=== PATIENT | female | born 1935 | race Caucasian/White ===

== ENCOUNTER 2018-05-31 08:49 | Outpatient (CLI) | payer MEDICARE, BC ==
[2018-05-31 09:24] LABS: GLUCOSE, URINE (UA) NEGATIVE (NEGATIVE); KETONES,URINE (UA) NEGATIVE (NEGATIVE); LEUKOCYTE ESTERASE, URINE NEGATIVE (NEGATIVE); NITRITE,URINE NEGATIVE (NEGATIVE); OCCULT BLOOD,URINE NEGATIVE (NEGATIVE); PROTEIN,URINE NEGATIVE (NEGATIVE); UROBILINOGEN,URINE 2 E.U./dL (NORMAL)
[2018-05-31 09:25] LABS: CLARITY,URINE CLEAR (CLEAR)
[2018-05-31 09:28] LABS: BILIRUBIN,URINE NEGATIVE (NEGATIVE); ICTOTEST,URINE NEGATIVE
[2018-05-31 09:39] LABS: BILIRUBIN,DIRECT 0.3 mg/dL (0.1-0.5); BILIRUBIN,TOTAL 3.3 mg/dL (0.2-1.0); CREATININE 0.5 mg/dL (0.4-1.0)
[2018-05-31 16:03] LABS: CREATININE,URINE 103.3 mg/dL; PROTEIN/CREATININE RATIO,URINE 0.1 (<=0.2)
== END 2018-05-31 08:50 | disposition home or self-care (01) ==
LOC: LAB 08:49
PROVIDERS: ATTEND Internal Medicine Hematology & Oncology
DX: D46.9 Myelodysplastic syndrome, unspecified (principal)
CPT/HCPCS: 81003; 82247; 82248; 82565; 82570; 82728; 84075; 84156; 84450; 84460

== ENCOUNTER 2018-06-02 09:10 | Outpatient (CLI) | payer MEDICARE, BC ==
[2018-06-02 09:48] LABS: BILIRUBIN,DIRECT 0.4 mg/dL (0.1-0.5); BILIRUBIN,INDIRECT 1.6 mg/dL
== END 2018-06-02 09:11 | disposition home or self-care (01) ==
LOC: LAB 09:10
DX: D46.9 Myelodysplastic syndrome, unspecified (principal)
CPT/HCPCS: 36415; 82247; 82248

== ENCOUNTER 2018-10-04 09:53 | Outpatient (CLI) | payer MEDICARE, BC ==
[2018-10-04 10:44] LABS: BILIRUBIN,DIRECT 0.4 mg/dL (0.1-0.5)
== END 2018-10-04 09:54 | disposition home or self-care (01) ==
LOC: LAB 09:53
PROVIDERS: ATTEND Internal Medicine Hematology & Oncology
DX: D46.9 Myelodysplastic syndrome, unspecified (principal)
CPT/HCPCS: 36415; 82248; 82977

== ENCOUNTER 2018-10-25 17:41 | Outpatient (CLI) | payer MEDICARE, BC ==
[2018-10-25 18:39] LABS: ALBUMIN 4.1 g/dL (3.2-5.5); BILIRUBIN,DIRECT 0.4 mg/dL (0.1-0.5); BILIRUBIN,TOTAL 3.7 mg/dL (0.2-1.0); TOTAL PROTEIN 6.4 g/dL (6.7-8.2)
== END 2018-10-25 17:42 | disposition home or self-care (01) ==
LOC: LAB 17:41
PROVIDERS: ATTEND Internal Medicine Hematology & Oncology
DX: D46.9 Myelodysplastic syndrome, unspecified (principal)
CPT/HCPCS: 80076; 82977

== ENCOUNTER 2018-11-22 12:31 | Outpatient (CLI) | payer MEDICARE, BC ==
[2018-11-22 13:22] LABS: BILIRUBIN,DIRECT 0.3 mg/dL (0.1-0.5); BILIRUBIN,TOTAL 1.6 mg/dL (0.2-1.0); TOTAL PROTEIN 6.2 g/dL (6.7-8.2)
== END 2018-11-22 12:32 | disposition home or self-care (01) ==
LOC: LAB 12:31
PROVIDERS: ATTEND Internal Medicine Hematology & Oncology
DX: D46.9 Myelodysplastic syndrome, unspecified (principal)
CPT/HCPCS: 80076; 82977

== ENCOUNTER 2018-12-20 10:50 | Outpatient (CLI) | payer MEDICARE, BC ==
[2018-12-20 15:59] LABS: ALBUMIN 4.2 g/dL (3.2-5.5); BILIRUBIN,DIRECT 0.3 mg/dL (0.1-0.5); BILIRUBIN,TOTAL 2.1 mg/dL (0.2-1.0); TOTAL PROTEIN 6.1 g/dL (6.7-8.2)
== END 2018-12-20 10:51 | disposition home or self-care (01) ==
LOC: LAB 10:50
PROVIDERS: ATTEND Internal Medicine Hematology & Oncology
DX: D64.9 Anemia, unspecified (principal)
CPT/HCPCS: 36415; 80076; 82977

== ENCOUNTER 2019-01-31 10:08 | Outpatient (CLI) | payer MEDICARE, BC ==
[2019-01-31 10:53] LABS: ALBUMIN 4.3 g/dL (3.2-5.5); BILIRUBIN,DIRECT 0.3 mg/dL (0.1-0.5); BILIRUBIN,TOTAL 1.9 mg/dL (0.2-1.0)
== END 2019-01-31 10:09 | disposition home or self-care (01) ==
LOC: LAB 10:08
PROVIDERS: ATTEND Internal Medicine Hematology & Oncology
DX: D46.9 Myelodysplastic syndrome, unspecified (principal)
CPT/HCPCS: 36415; 80076; 82977

== ENCOUNTER 2019-08-29 10:49 | Day surgery (SDC) | payer MEDICARE, BC ==
[~2019-08-29 10:49] MED LIST: BUPIVACAINE 0.5% PF 30 ML VIAL ONE; LIDOCAINE 1%-EPI 1:100000 20 ML MDV ONE
[2019-08-29] MEDS ORDERED: LACTATED RINGERS 1,000 ML IV ONE (10:59)
--- NOTE | 2019-08-29 11:31 | ANESTHESIA ---
Pre-Anesthesia VS, & Labs - Diagnosis chronic anemia, myelodisplastic syndrome - Procedure portacath placement Vital Signs: Temp Pulse Resp BP Pulse Ox 36.6 C 69 16 119/57 L 97 08/29/19 10:59 08/29/19 10:59 08/29/19 10:59 08/29/19 10:59 08/29/19 10:59 Height 5 ft 6 in Weight (kg) 81.4 kg Body Mass Index 27.8 - Is Patient ?: No - Lab Results Fish Bones: 08/29/19 11:31 Home Medications and Allergies Home Medications: Ambulatory Orders Deferasirox [Jadenu] 720 mg PO DAILY 08/14/19 Deferasirox [Jadenu] 720 mg PO DAILY 08/14/19 Allergies/Adverse Reactions: Allergies Allergy/AdvReac Type Severity Reaction Status Date / Time No Known Drug Allergies Allergy Verified 07/25/19 10:47 Anes History & Medical History - Anesthetic History Anesthesia Complications: reports: No previous complications Family history of Anesthesia Complications: Denies Family history of Malignant Hyperthermia: Denies - Medical History Cardiovascular: reports: None Pulmonary: reports: None Gastrointestinal: reports: None Urinary: reports: None Neuro: reports: None Musculoskeletal: reports: None Endocrine/Autoimmune: reports: None Blood Disorders: reports: None Skin: reports: None Smoking Status: Never smoker Psychosocial: reports: No issues indicated - Surgical History General: Colonoscopy Gynecologic: Dilation and currettage, Tubal ligation, Hysterectomy Results - EKG Results EKG Comparison: No prior EKG Exam General: Alert, Oriented x3, Cooperative, No acute distress Dental: WNL Mouth Openin Fingerbreadth Neck Mobility: Normal Mallampati classification: II Thyromental Distance: less than 4 cm Respiratory: Lungs clear, Normal breath sounds, No respiratory distress, No accessory muscle use Cardiovascular: Regular rate, Normal S1, Normal S2, No murmurs Abdomen: Normal bowel sounds, Soft, No tenderness, No hepatospenomegaly, No masses Extremities: No clubbing, No cyanosis, No edema, Normal pulses, No tenderness/swelling Neurological: Normal gait, Normal speech, Strength at 5/5 X4 ext, Normal tone, Sensation intact, Cranial nerves 3-12 NL, Reflexes 2+ Mental/Cognitive Status: Alert/Oriented X3, Normal for patient Cognitive Status: Within normal limits Plan Anesthesia Type: General, MAC (spoke with patient about both general and deep sedation/MAC) Consent for Procedure(s) Verified and Reviewed: Yes Code Status: Attempt Resuscitation ASA classification: 3-Severe systemic disease Is this case an emergency?: No
[2019-08-29 11:40] LABS: HGB - HEMOGLOBIN 9.4 g/dL (12.0-16.0)
[2019-08-29] MEDS ORDERED: PROPOFOL 200 MG/20 ML VIAL IVP ONE (12:44)
[2019-08-29] MEDS ORDERED: MIDAZOLAM 2 MG/2 ML VIAL IVP ONE (12:44)
[2019-08-29] MEDS ORDERED: fentaNYL 100 MCG/2 ML VIAL IVP ONE (12:44)
[2019-08-29] MEDS ORDERED: LIDOCAINE-MPF 2% 5 ML VIAL IM ONE (12:44)
[2019-08-29] MEDS ORDERED: LIDOCAINE 1%-EPI 1:100000 20 ML MDV SUBQ ONE (13:19)
[2019-08-29] MEDS ORDERED: BUPIVACAINE 0.5% PF 30 ML VIAL SUBQ ONE (13:20)
--- NOTE | 2019-08-29 13:41 | OPERATIVE REPORT ---
Operative Report - General Procedure Date: 08/29/19 Planned Procedure: Left subclavian PowerPort placement Pre-Op Diagnosis: Myelodysplastic syndrome with chronic anemia Procedure Performed: Left Subclavian Power Port Placement Post Op Diagnosis: Myelodysplastic syndrome with chronic anemia - Procedure Note Primary Surgeon: Eh Anesthesia Provider: CLEMENTE Sapp Anesthesia Technique: Local, MAC Estimated Blood Loss (mL): 10 Indications: Anemia requiring blood transfusion twice monthly Findings: Power port in good position in the superior vena cava Complications: None apparent - Other Other Information/Narrative: After obtaining informed consent, the patient is brought to the operating room and placed in the supine position on the operating table. Following successful induction of sedation with monitored anesthesia care, the chest was prepped and draped in the standard surgical fashion. A timeout was held per scope protocol. All elements of the surgical safety checklist were followed before, during, and after the procedure. An area of the skin is of cutaneous tissue was anesthetized in the deltopectoral groove in the left chest the left subclavian vein was then accessed through the site and the J-wire placed into the vein. Fluoroscopy confirmed the J-wire's position in the subclavian vein. We then anesthetized an area for placement of the port itself and created a pocket here. An incision was made in this area and a pocket created using blunt and sharp dissection so that the port could be attached to the patient's chest wall. A ibis was then created at the J-wire location and the tubing was placed in this pocket using the tunneler. The port was then assembled and sewn into place in the pocket. The port was flushed once again. The dilator and introducer were then passed over the J-wire and into the subclavian vein. The J-wire and dilator were removed leaving only the introducer. The tubing was then gently passed into the introducer without resistance. The introducer was then cracked and removed leaving tubing in place in the subclavian vein. The wound was then checked for hemostasis. The port was checked for patency and flushed and krystle easily. It was locked with heparin saline solution. The pocket was closed in 2 layers with Vicryl Monocryl suture and Dermabond was applied all the skin incisions. All sponge, needle, and i nstrument counts were correct at the conclusion of the case. Chest x-ray in the postanesthesia care unit revealed the port in good position.
[2019-08-29] MEDS ORDERED: HYDROmorphone 0.5 MG/0.5 ML SYRINGE IVP PRN (13:42)
[2019-08-29] MEDS ORDERED: ONDANSETRON 4 MG/2 ML VIAL IVP PRN (13:42)
[2019-08-29] MEDS ORDERED: oxyCODONE 5 MG TABLET PO PRN (13:42)
--- NOTE | 2019-08-29 13:50 | XRAY Report ---
Reason: PORTACATH PLACEMENT Procedure Date: 08/29/2019 Accession Number: [id number] / [id number] Procedure: FL - OR Port-A-Cath CPT Code: Final Report FULL RESULT: EXAM: FLUOROSCOPIC GUIDANCE EXAM DATE: 08/29/2019 01:22 PM. CLINICAL HISTORY: PORTACATH PLACEMENT. COMPARISON: None. IMPRESSION: Fluoroscopic guidance provided for Port-A-Cath placement. Total fluoroscopy time: 0.1 minutes. Number of images: 1. RADIA
[2019-08-29 14:33] VITALS: BP 120/46
--- NOTE | 2019-08-29 14:40 | XRAY Report ---
Reason: POST PORTACATH PLACEMENT Procedure Date: 08/29/2019 Accession Number: [id number] / [id number] Procedure: XR - Chest for Line Placement CPT Code: Final Report FULL RESULT: EXAM: CHEST RADIOGRAPHY EXAM DATE: 08/29/2019 02:24 PM. CLINICAL HISTORY: Post Port-A-Cath placement. COMPARISON: CHEST 1 VIEW 09/28/2016 4:25 PM. TECHNIQUE: 1 view. FINDINGS: Tubes and lines: There has been interval placement of a left-sided Port-A-Cath via left subclavian approach. Tip of the catheter terminates in the proximal SVC. Lungs/Pleura: No focal opacities evident. No pleural effusion. No pneumothorax. Mediastinum: Within exam limitations, the cardiomediastinal contour is normal. Other: None. IMPRESSION: New left-sided Port-A-Cath tip in the proximal SVC. No apparent complication. RADIA
== END 2019-08-29 10:50 | disposition home or self-care (01) ==
LOC: SDS 10:49
PROVIDERS: ATTEND Surgery
PROC: 02HV33Z Insertion of Infusion Device into Superior Vena Cava, Percutaneous Approach (ICD-10-PCS; 2019-08-29)
PROC: 0JH60WZ Insertion of Totally Implantable Vascular Access Device into Chest Subcutaneous Tissue and Fascia, Open Approach (ICD-10-PCS; principal; 2019-08-29 12:30)
DX: D46.9 Myelodysplastic syndrome, unspecified (principal); Z79.899 Other long term (current) drug therapy
CPT/HCPCS: 36561; 85014; 85018; C1788; J7120; 71045

== ENCOUNTER 2019-09-19 09:47 | Outpatient (CLI) | payer MEDICARE, BC ==
[2019-09-19] MEDS ORDERED: IOTHALAMATE MEGLUMINE 50 ML VIAL ONE (09:52)
[2019-09-19] MEDS: IOTHALAMATE MEGLUMINE 50 ML VIAL IVP ONE (12:32)
--- NOTE | 2019-09-19 12:38 | XRAY Report ---
Reason: DYSFUNCTION OF PORT Procedure Date: 09/19/2019 Accession Number: [id number] / [id number] Procedure: FL - Fluoro Independent Procedure CPT Code: Final Report FULL RESULT: EXAM: EXAM DATE: 09/19/2019 11:04 AM. CLINICAL HISTORY: Portacatheter function. COMPARISON: Chest x-ray 08/29/2019. TECHNIQUE: Verbal and written consent obtained. The patient presented with access of the indwelling left portacatheter. Using standard aseptic technique. Approximately 5 cc of Conray injected via the indwelling line under fluoroscopic guidance. Fluoroscopy Time: 0.5 seconds. FINDINGS: The tip of the catheter is seen at the junction of the brachiocephalic subclavian vein, stable since the immediate post procedure placement examination. Contrast flows readily into the superior vena cava in normal antegrade fashion. There is pooling or reflux to suggest fibrin sheath formation IMPRESSION: 1. No fibrin sheath formation. 2. Portacatheter tip at the left brachiocephalic vein/superior vena cava junction. NOTE: Discussed results with Nurse White in the MAC at 11:25 am. NEVAEH
== END 2019-09-19 09:48 | disposition home or self-care (01) ==
LOC: DI 09:47
PROVIDERS: ATTEND Internal Medicine Hematology & Oncology
DX: T85.698A Other mechanical complication of other specified internal prosthetic devices, implants and grafts, initial encounter (principal)
CPT/HCPCS: 76000; Q9961

== ENCOUNTER 2020-09-03 12:20 | Outpatient (CLI) | payer MEDICARE, BC ==
--- NOTE | 2020-09-03 16:33 | CONSULTATION NOTE ---
Palliative Care Consultation - Referral Referring Provider: Dr. Rose Rojas Time of Visit: [id number] Referral setting: [facility] [place] Referral Reason: MDS/Goals of Care/Pal Care - Information Sources Records reviewed: Previous records reviewed History/Review of Systems obtained from: Patient Exam limitations: No limitations - History of Present Illness Brief History of Present Illness: This is a ute 85-year-old woman who has MDS, her original diagnosis was in 2014, has had severe anemia, been transfusion dependent every 2 to 3 weeks. Has previously failed Procrit. She also has ongoing leukopenia and neutropenia, previously treated with Neupogen. She is known to have iron overload due to frequent transfusions, but had to stop jejuni related to severe diarrhea. She is currently on luspatercept since 12/26/2019, originally had a fairly good response, but now more concerns regarding a sustained response. We are waiting the results of her labs, she does appear quite pale, fatigued, and suspect she is going to need a transfusion. She does understand her options are declining, but her next line of treatment would be Vidaza. She is very much interested in advanced care planning, focusing on quality of life, does present with low symptom burden other than constipation, she does recognize the seriousness of he r illness and would like to get things organized and in place. She has very few other comorbidities, other than macular degeneration, continues to be quite engaged in her [employer] community, and has had significant support through her family. She does have 3 children, her son Kody, [place] and providing ongoing support. She does live independently, they had lived with her for a couple of months, now though is having less energy, so has enjoyed having her son and [id number] provide another layer of support. 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 She has 3 children, one in [place], a daughter who is chronically ill in [place], and her son and [id number] who [place]. She has an expansive community of support, though this can also be tiring for her, she is working on setting limits. Family History - Family History Family History: Mother: , Father: Medications/Allergies - Medications Home Medications: Ambulatory Orders Medication Instructions Recorded Confirmed Lidocaine/Prilocain 2.5% Cream 1 gm TOP PRN PRN #1 tube 08/29/19 09/03/20 [Emla 2.5% Cream] Cholecalciferol (Vitamin D3) 1 tab PO DAILY 09/03/20 09/03/20 [Vitamin D3] Lactobacillus Acidophilus 1 tab PO DAILY 09/03/20 09/03/20 [Probiotic Acidophilus] Senna [Senokot] 8.6 mg PO QPM PRN MDD 2-4 tabs 09/03/20 09/03/20 polyethylene glycoL 3350 [Miralax] 8.5 - 17 gm PO DAILY 09/03/20 09/03/20 - Allergies Allergies/Adverse Reactions: Allergies Allergy/AdvReac Type Severity Reaction Status Date / Time No Known Drug Allergies Allergy Verified 09/03/20 13:02 Review of Systems - Constitutional Constitutional: reports: Fatigue (worsening), Weight stable. denies: Fever, Chills - Eyes Eyes: reports: Vision loss - Ears, Nose & Throat Ears, Nose & Throat: reports: Mouth lesions - Cardiovascular Cardiovascular: reports: Exertional dyspnea, Decr. exercise tolerance. denies: Edema - Respiratory Respiratory: reports: SOB with exertion. denies: SOB at rest - Gastrointestinal Gastrointestinal: reports: Constipation (intermittent hard stool), Good appetite, Other (occasional difficulty swallowing). denies: Nausea - Genitourinary Genitourinary: reports: Urgency. denies: Incontinence - Musculoskeletal Musculoskeletal: reports: Muscle weakness - Neurological Neurological: reports: General weakness, Memory problems (notes mild at times) - Psychiatric Psychiatric: denies: Depression, Anxiety - Hematologic/Lymphatic Hematologic/Lymph: Anemia - All Other Systems All Other Systems: reports: Reviewed and negative Physical Exam - Vital Signs Temperature: 36.8 C Pulse Rate: 76 Respiratory Rate: 16 Blood Pressure: 110/45 - Physical Exam General Appearance: positive: No acute distress, Alert, Other (feeling poorly) Eyes Bilateral: positive: Normal inspection ENT: positive: No signs of dehydration Neck: positive: Trachea midline Respiratory: negative: No respiratory distress (breathlessness with ambulation) Abdomen: positive: Non-tender, Soft Skin: positive: Pallor Extremities: positive: No pedal edema Neurologic/Psychiatric: positive: Oriented x3, Mood/affect nml, Weakness Palliative Care - POLST Patient has POLST: Yes POLST Status: DNR, Selective Treatment (completed at time of visit) Pain: No pain Tiredness/Fatigue: Severe (7-10) Drowsiness/Sedation: Mild (1-3) Nausea: None Anorexia: None Dyspnea: Moderate (4-6) Depression: None Anxiety: Mild (1-3) Feelings of wellbeing/Perceived Quality of Life: Fair, Acceptable, Worsening Sleep: Sleeps well Constipation: Yes, Intermittent constipation Performance Status: Patient does have worsening activity tolerance, does suspect her counts are down. Her energy waxes and wanes, but has been declining over time. She is independent in her ADLs, she is no longer able to drive secondary to her macular degeneration. She is found this quite a loss of freedom. - Palliative Care Discussion: Patient is quite anxious to get her affairs in order, we did discuss in the context of advanced care planning documents she does have a DPOA, that she might want to revisit, she does prefer at this point in time to have her son Kody as he is living close now to be her primary. She does have it set up is either her friend Dee Lorenzo or her son. She does have plans set up with [facility], they do have some end-of-life planning packets, she is quite curious what she needs to finish yet. She very much though is clear she wants to be a DNA R, will go ahead and complete the POLST. In discussion we have filled up his DNA R/allow natural , and selective treatment. She would still accept treatment at this time for reversible conditions, and would weigh benefits and burdens of any other kind of interventions. And summing up her goals, she would like to focus on quality of life, living life to the fullest which for her means being independent and able to do the things that give her meaning, spending time with family, and at end-of-life a comfortable respectful she is not sure at this point in time if she would want to have a at home. She would very much like to have some conversations with her son who will be her DPOA to further explore some of these avenues. Given the Covid restrictions, we will set up a home visit for family meeting next time. Results - Lab Results Lab results reviewed: Yes Lab and Imaging Results: HGB 6.7; did receive transfusion after visit Impression and Recommendations - Palliative Care Impression: This is a ute 85-year-old woman who has myelodysplastic syndrome with severe anemia, leukocytopenia and thrombocytopenia. She has been transfusion dependent, she will be receiving 2 units today for hemoglobin of 6.7. She has been on a new medication lusperacept since December, but is aware may need to transition to next treatment plan. She does understand the seriousness of her illness and there are more limited options moving forward, she would like to complete her advance care planning, and explore further ways to support and organize for her end of life. Palliative care meeting with patient for first time, to explore goals of care, symptom burden, and anticipatory guidance. Recommendations/Counseling Done: 1. Constipation. Counseling provided regarding management of constipation, instructed to start MiraLAX 1/2-1 cap daily, and use senna for 1-2 tabs daily for a goal of daily soft regular bowel movement. 2. Fatigue. This is multifactorial in origin, suspect at time of visit she was fairly anemic, patient will be receiving 2 units of packed red blood cells toda y for hemoglobin of 6.7. She has so had been experiencing worsening activity tolerance and some mild functional decline. 3. Advanced care planning. Counseling provided regarding introducing the role of palliative care, setting up rapport, patient would wanted to complete the POLST, counseling provided regarding role of this and completed with initial goals of care. We will continue to explore further themes regarding this. Patient would very much like her son involved, will set up family meeting for next visit. Time Spent: 55 minutes with greater than 50% of this done in counseling, completion of POLST, setting of rapport, and anticipatory guidance.
== END 2020-09-03 12:21 | disposition home or self-care (01) ==
LOC: PC 12:20
PROVIDERS: ATTEND Nurse Practitioner Adult Health
DX: Z51.5 Encounter for palliative care (principal); K59.00 Constipation, unspecified; R53.83 Other fatigue; D46.9 Myelodysplastic syndrome, unspecified; D72.819 Decreased white blood cell count, unspecified; D69.6 Thrombocytopenia, unspecified; Z79.899 Other long term (current) drug therapy; Z66 Do not resuscitate
CPT/HCPCS: 99204

== ENCOUNTER 2020-09-19 10:30 | Outpatient (CLI) | payer MEDICARE, BC ==
--- NOTE | 2020-09-19 17:28 | CONSULTATION NOTE ---
Palliative Care Follow Up - Referral Referring Provider: Dr. Rose Rojas Time of Visit: [id number] Referral setting: Home Referral Reason: MDS/Constipation/ACP - Information Sources Records reviewed: Previous records reviewed History/Review of Systems obtained from: Patient, Family (son Kody present) Exam limitations: No limitations - History of Present Illness Update Brief HPI Update: This is a ute 85-year-old woman who has MDS, with her original diagnosis in 2014, has had severe anemia, and has been transfusion dependent. She had been on Luspatercept, until she was no longer receiving a sustained response. This was just stopped with the goal to start Vidaza. Patient does understand this is most likely her last treatment option, though she did reach out to Dr. Calderon, her oncologist at [facility] and there may be an oral medication in clinical trial she would be candidate for. She did receive 2 units of packed red blood cells on 09/13, is pleased as her hematocrit has held at 9.0, and is feeling better. Unfortunately she does present with neutropenia neutrophils at 0.2, and WBCs at 2.4. 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 Today's meeting was set up with her son Kody, to discuss end-of-life options. She is hoping for the best, but does understand this likely a 30 to 40% chance of response, and she is coming towards the end of her options for treatment. She has very few other comorbidities, other than macular degeneration. She is starting to have some functional decline, though this is most related to her fluctuating anemia. Did have some persistent obstipation, does describe though out over the last few months as her stools are dark and somewhat she denies any GERD, abdominal discomfort, or butch bleeding. 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 She has 3 children in [place], daughter is chronically ill in [place], and her son Kody a [id number] who recently moved to the [place]. An expansive community of support and though this could be tiring for her she is working on setting limits. Medications/Allergies - Medications Home Medications: Ambulatory Orders Medication Instructions Recorded Confirmed Lidocaine/Prilocain 2.5% Cream 1 gm TOP PRN PRN #1 tube 08/29/19 09/17/20 [Emla 2.5% Cream] Cholecalciferol (Vitamin D3) 1 tab PO DAILY 09/03/20 09/17/20 [Vitamin D3] Lactobacillus Acidophilus 1 tab PO DAILY 09/03/20 09/17/20 [Probiotic Acidophilus] Senna [Senokot] 8.6 mg PO QPM PRN MDD 2-4 tabs 09/03/20 09/17/20 polyethylene glycoL 3350 [Miralax] 8.5 - 17 gm PO DAILY 09/03/20 09/17/20 - Allergies Allergies/Adverse Reactions: Allergies Allergy/AdvReac Type Severity Reaction Status Date / Time No Known Drug Allergies Allergy Verified 09/17/20 12:42 Review of Systems - Constitutional Constitutional: reports: Fatigue (better with recent transfusion), Weight stable (165). denies: Fever, Chills - Eyes Eyes: reports: Vision loss - Cardiovascular Cardiovascular: reports: Decr. exercise tolerance. denies: Chest pain - Respiratory Respiratory: reports: SOB with exertion. denies: Cough, SOB at rest - Gastrointestinal Gastrointestinal: reports: Constipation (intermittent hard stool), Good appetite, Other (occasional difficulty swallowing). denies: Nausea - Genitourinary Genitourinary: reports: Urgency. denies: Incontinence - Musculoskeletal Musculoskeletal: reports: Stiffness, Muscle weakness - Integumentary Integumentary: reports: Dryness - Neurological Neurological: reports: General weakness, Memory problems (notes mild at times) - Psychiatric Psychiatric: reports: Anxiety (related to change in treatment; will need to get Vidaza in [place]) - Hematologic/Lymphatic Hematologic/Lymph: Anemia - All Other Systems All Other Systems: reports: Reviewed and negative Physical Exam - Vital Signs Pulse Rate: 72 Respiratory Rate: 18 Blood Pressure: 122/60 - Physical Exam General Appearance: positive: No acute distress, Alert Eyes Bilateral: positive: Normal inspection ENT: positive: No signs of dehydration Neck: positive: Trachea midline Cardiovascular: positive: Regular rate & rhythm Respiratory: positive: No respiratory distress, Breath sounds nml Abdomen: positive: Non-tender, Soft Skin: positive: Pallor, Dryness Extremities: positive: No pedal edema Neurologic/Psychiatric: positive: Oriented x3, Mood/affect nml, Weakness Palliative Care - POLST Patient has POLST: Yes POLST Status: DNR, Selective Treatment Pain: No pain Tiredness/Fatigue: Moderate (4-6) Drowsiness/Sedation: Mild (1-3) Nausea: None Anorexia: None Dyspnea: Mild (1-3) Depression: Mild (1-3) Anxiety: Moderate (4-6) Feelings of wellbeing/Perceived Quality of Life: Fair, Acceptable, Worsening Sleep: Sleeps well Constipation: Yes, Intermittent constipation Performance Status: Patient is able to manage her own ADLs, she is ambulatory though she is quite careful both with vision and with lower extremity weakness. Does pace herself and takes she is fearful of falling. - Palliative Care Discussion: Patient does understand the seriousness of her illness, she reports she is at a place where "she is just holding her breath", she is quite pleased with her current status she is feeling better from her transfusion. She is somewhat anxious in the context of receiving her Vidaza, her understanding is an expected 30 to 40% response rate. We are here to discuss the long-term planning and continuum regarding this. Counseling was provided regarding the continuum of care, looking at the fragility of living with MDS, high risk of infection, support long-term for transfusions, patient is quite clear she is most worried about quality of life. She is very independent, we did discuss at point we are at end-of-life, plans for end of life. Conversation was an opportunity for her and her son to discuss his willingness to be caregiving, we did discuss the role of hospice, son has recently lost her his father to dementia care facility and of Covid. He is familiar with the need to really define what goals are. He patient did complete POLST with last visit of DN AR and selective treatment. Currently she would be treated for reversible conditions as long as her quality of life for to be acceptable. Patient also would like to explore with dignity, she does understand its a time involved process, I will reach out to Dr. Reed DUNNE, I suspect if she were not to receive treatment she would receive or respond she would be in that 6-month window. This would allow her to move forward on this. Did steer them towards end-of-life Su. Also reviewed plans, DPOA for finance, feels like she has most of things in order. With patient and son, explored the anxiety regarding living in this "twilight time." Impression and Recommendations - Palliative Care Impression: This is a ute 85-year-old woman who has myelodysplastic syndrome, with severe anemia, leukocytopenia and thrombocytopenia. She continues to be transfusion dependent, she will be transitioning over to Vidaza. She does understand the seriousness of her illness, with more limited options. Today's meeting was to focus on advance care planning with her son support, as it is important for her to organize for her end-of-life. Palliative care will continue to provide support for symptom management and anticipatory guidance. Recommendations/Counseling Done: 1. Constipation. Patient has been using MiraLAX with softer stools, continues to titrate both MiraLAX and senna, with a goal for regular soft BM every 1-2 days. Patient did reveal today her stools have been on the dark side, sometimes tarry. We will go ahead and arrange for Hemoccult testing, and follow-up. 2. Fatigue. This is multifactorial in origin, she is feeling somewhat better with most recent transfusion. She has had worsening activity tolerance and mild functional decline. She does live alone and is high risk for falls. Did recommend [facility] for support. 3. Advanced care planning. Counseling with family, patient and son regarding the role of palliative care, advanced care planning documents, patient does have DPOA set up, as well as POLST completed. Patient is interested in doing DWD, will reach out to oncology regarding prognosis. Recommended that they explore and get volunteer for end-of-life Su, as well as make an appointment with her primary care for first request. We will continue to explore further themes as patient is very much wanting to get her affairs in order. 4. MDS. Patient will be receiving Vidaza, via [facility] related to shortage. She does understand the seriousness of her illness, will continue to support with symptom management and anticipatory guidance. Time Spent: 75 minutes with greater than 50% of this time in counseling regarding advanced care planning, continuum of care, end-of-life planning, and anticipatory guidance
== END 2020-09-19 10:31 | disposition home or self-care (01) ==
LOC: PC 10:30
PROVIDERS: ATTEND Nurse Practitioner Adult Health
DX: Z51.5 Encounter for palliative care (principal); K59.00 Constipation, unspecified; R19.5 Other fecal abnormalities; R53.83 Other fatigue; D46.9 Myelodysplastic syndrome, unspecified; D46.4 Refractory anemia, unspecified; D70.9 Neutropenia, unspecified; D69.6 Thrombocytopenia, unspecified; Z66 Do not resuscitate
CPT/HCPCS: 99350

== ENCOUNTER 2020-10-04 12:45 | Outpatient (CLI) | payer MEDICARE, BC ==
--- NOTE | 2020-10-04 17:35 | CONSULTATION NOTE ---
Palliative Care Follow Up - Referral Referring Provider: Islea Acharya PA-C Time of Visit: [id number] Referral setting: [facility] [place] Referral Reason: Constipation/MDS/Goals of Care - Information Sources Records reviewed: Previous records reviewed History/Review of Systems obtained from: Patient Exam limitations: Clinical condition (patient quite exhausted) - History of Present Illness Update Brief HPI Update: This is a ute 85-year-old woman who has MDS, with original diagnosis in 2014. She does have ongoing severe anemia and is transfusion dependent, she is currently receiving 2 units of packed red blood cells, her last transfusion was 9 days ago. She was feeling quite exhausted, and unfortunately due to her curre nt arrangements for her Vidaza, was having difficulty accessing what she needs for labs. She was able to advocate for this, but is hoping moving forward can be better organized. She did receive 5 days of Vidaza, has 2 next week, her understanding is this is monthly. She does have some increased fatigue though attributes this to her low hemoglobin, she has some mild soreness in her abdomen, has had some intermittent nausea, and has found the trip somewhat exhausting. Patient had asked to meet, to further discuss her questions around goals of care and DWD. Social History - Living Situation Living arrangement: At home Living Situation: Alone Support System: Patient does have an extensive support network, [place] and in conjunction with her friends have been finding transportation. 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 Medications/Allergies - Medications Home Medications: Ambulatory Orders Medication Instructions Recorded Confirmed Lidocaine/Prilocain 2.5% Cream 1 gm TOP PRN PRN #1 tube 08/29/19 09/17/20 [Emla 2.5% Cream] Cholecalciferol (Vitamin D3) 1 tab PO DAILY 09/03/20 09/17/20 [Vitamin D3] Lactobacillus Acidophilus 1 tab PO DAILY 09/03/20 09/17/20 [Probiotic Acidophilus] Senna [Senokot] 8.6 mg PO QPM PRN MDD 2-4 tabs 09/03/20 09/17/20 polyethylene glycoL 3350 [Miralax] 8.5 - 17 gm PO DAILY 09/03/20 09/17/20 - Allergies Allergies/Adverse Reactions: Allergies Allergy/AdvReac Type Severity Reaction Status Date / Time No Known Drug Allergies Allergy Verified 09/17/20 12:42 Review of Systems - Constitutional Constitutional: reports: Fatigue (better with recent transfusion), Weight stable (165). denies: Fever, Chills - Eyes Eyes: reports: Vision loss - Ears, Nose & Throat Ears, Nose & Throat: reports: Dry mouth - Cardiovascular Cardiovascular: reports: Decr. exercise tolerance - Respiratory Respiratory: reports: SOB with exertion. denies: Cough, SOB at rest - Gastrointestinal Gastrointestinal: reports: Constipation (intermittent hard stool), Nausea, Vomiting (one episode this week), Bloating, Early satiety - Genitourinary Genitourinary: reports: Urgency. denies: Incontinence - Musculoskeletal Musculoskeletal: reports: Stiffness, Muscle weakness - Integumentary Integumentary: reports: Dryness - Neurological Neurological: reports: General weakness, Memory problems (notes mild at times) - Psychiatric Psychiatric: reports: Anxiety (related to change in treatment; trying to roman igate current landscape with getting Vidaza in [place]) - Hematologic/Lymphatic Hematologic/Lymph: Anemia (receiving 2 units PRBCs for 7.5 hgb) - All Other Systems All Other Systems: reports: Reviewed and negative Physical Exam - Vital Signs Temperature: 97.5 C Pulse Rate: 73 Respiratory Rate: 18 Blood Pressure: 118/47 - Physical Exam General Appearance: positive: No acute distress, Alert, Lethargic Eyes Bilateral: positive: Normal inspection, No scleral icterus ENT: positive: No signs of dehydration Neck: positive: Trachea midline Respiratory: positive: No respiratory distress Abdomen: positive: Non-tender, Soft Skin: positive: Pallor (slightly yellow hue), Dryness Extremities: positive: No pedal edema Neurologic/Psychiatric: positive: Oriented x3, Mood/affect nml, Weakness, Flat affect Palliative Care - POLST Patient has POLST: Yes POLST Status: DNR, Selective Treatment Pain: No pain Tiredness/Fatigue: Severe (7-10) Drowsiness/Sedation: Moderate (4-6) Nausea: Mild (1-3) Anorexia: Mild (1-3) Dyspnea: Mild (1-3) Depression: Mild (1-3) Anxiety: Moderate (4-6) Feelings of wellbeing/Perceived Quality of Life: Fair, Worsening Sleep: Sleeps well Constipation: Yes, Intermittent constipation Performance Status: Patient is feeling low energy, is spending most of her time sitting in her chair, this is related both to her increased effort with travel as well as her low hematocrit. She does live alone, and concerned about her meeting her care needs, her son did offer for her to stay at his place, encouraged her to continue to consider this during times when she is feeling so low. - Palliative Care Discussion: Patient did have a conversation with her PCP, he is not very open to doing DWD prescribing, is happy to be a collaborating physician. We did discuss given the complexity with blood cancers, often we do not have the time or lecture he as it is at least a 3 to 4-week process. I did provided the checklist. She does understand and is not interested in having this absolute happen, but would like to have it as an option. At this point in time she will reach out when she would like me to put her in touch with a volunteer, we did discuss her goals for end-of-life. She would like a peaceful transition and hoping for no crisis, though does recognize things may go poorly, we also discussed she is transfusion dependent at any point in time when quality of life does not make any sense she could stop her transfusions and transition to hospice as well for support. She does understand the likelihood of response on her current treatment, she is hoping for the best. She also does understand she has to wait for a few cycles before knowing the outcome to her treatment. She remains hopeful, but also realistic. 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 She last received a transfusion 9 days ago, is currently receiving 2 units of packed red blood cells. She does understand the seriousness of her illness, and is currently started on her Vidaza. Unfortunately due to the complexity of this, is re ceiving Vidaza over an average. This is felt somewhat difficult to straddle both systems, had multiple questions about how to make this more smooth. Palliative care continue provide support for symptom management and anticipatory guidance. Recommendations/Counseling Done: 1. Constipation. Patient continues to struggle with intermittent constipation, has not been using her MiraLAX, has been using the senna. Given what she describes, she has been encouraged to me discussed ways to incorporate MiraLAX into her schedule daily. She does report she does have some trouble with medication adherence. 2. Nausea. She has found ondansetron to be effective, has had a couple episodes through this week with her initiation of Vidaza. She also reports early satiety, she is remaining hydrated. 3. Fatigue this is multifactorial in origin. She does get a little boost still from her transfusions of 2 or 3 days, but now with travel and initiation of her new treatment, this remains fairly persistent. Patient does live alone and is at high risk for falls, have recommended [facility] for support, her son is also offered for her to be at his home. Encouraged considering this. 4. MDS. Patient have is received 5 out of 7 days of Vidaza, her understanding is this will be monthly. Did reach out to Dr. Reed DUNNE, for coordination of care, she would like to see Dr. Booker, and also make sure with over the holiday, the she is able to get a transfusion without problems. She does recognize the seriousness and concern for shortening time. 5. Advanced care planning. Patient continues to move forward on her plans, counseling provided today regarding DWD, also other planning issues around end-of-life, patient is quite pragmatic, did explore patient's questions today. Time Spent: 45 minutes with greater than 50% of this done in counseling regarding advanced care planning, symptom management, and anticipatory guidance
== END 2020-10-04 12:46 | disposition home or self-care (01) ==
LOC: PC 12:45
PROVIDERS: ATTEND Nurse Practitioner Adult Health
DX: Z51.5 Encounter for palliative care (principal); K59.00 Constipation, unspecified; R11.0 Nausea; R53.83 Other fatigue; D46.9 Myelodysplastic syndrome, unspecified; D46.4 Refractory anemia, unspecified; Z66 Do not resuscitate
CPT/HCPCS: 99215

== ENCOUNTER 2020-10-06 22:10 | Outpatient (CLI) | payer MEDICARE, BC | END 2020-10-06 22:11 | disposition critical access hospital (66) | LOC: EMS 22:10 | PROVIDERS: ATTEND Surgery | DX: R10.84 Generalized abdominal pain (principal); R14.0 Abdominal distension (gaseous); K59.00 Constipation, unspecified | CPT/HCPCS: A0425; A0429 ==

== ENCOUNTER 2020-10-06 22:42 | Emergency (ER) | payer MEDICARE, BC ==
[2020-10-06] MEDS ORDERED: LACTATED RINGERS 1,000 ML IV ONE (23:17)
--- NOTE | 2020-10-06 23:23 | ED Physician Documentation ---
History of Present Illness - Stated complaint Stated Complaint: ABD PX - Chief complaint Chief Complaint: Abd Pain - History obtained from History obtained from: Patient - Additonal information Additional information: 85-year-old woman with past medical history of myelodysplastic syndrome on her third line treatment for this (AZACITIDINE that she started a week ago). Patient states she has had constipation since starting this medication and was put on senna/MiraLAX for this. She had one hard small stool this morning but has had abd pain since this am- gradual onset worsening constant cramping midline abdominal pain to the upper and lower quadrants a/w bloating. no exac/relieving symptoms. She denies urinary symptoms, fever, nausea, diarrhea, blood in the stool, back pain. PSH MAME. denies other abdominal surgeries. patient is passing flatus with difficulty. patient was given 150ucg fentanyl by ems en route. she declined nausea medicine. Review of Systems Ten Systems: 10 systems reviewed and negative Constitutional: denies: Fever, Chills, Myalgias GI: reports: Abdominal Pain, Abdominal Swelling, Constipation. denies: Nausea, Vomiting, Diarrhea : denies: Dysuria, Frequency Skin: denies: Rash Musculoskeletal: denies: Back pain PD PAST MEDICAL HISTORY - Past Medical History Cardiovascular: None Neuro: None Endocrine/Autoimmune: None GI: Chronic constipation HEENT: Chronic vision loss, Macular degeneration Psych: None Musculoskeletal: Fatigue, Other Other Past Medical History: myelodysplastic syndrome - Past Surgical History Past Surgical History: Yes /[employer]: Hysterectomy - Present Medications Home Medications: Ambulatory Orders Medication Instructions Recorded Confirmed Lidocaine/Prilocain 2.5% Cream 1 gm TOP PRN PRN #1 tube 08/29/19 10/06/20 [Emla 2.5% Cream] Cholecalciferol (Vitamin D3) 1 tab PO DAILY 09/03/20 10/06/20 [Vitamin D3] Lactobacillus Acidophilus 1 tab PO DAILY 09/03/20 10/06/20 [Probiotic Acidophilus] Senna [Senokot] 8.6 mg PO QPM PRN MDD 2-4 tabs 09/03/20 10/06/20 polyethylene glycoL 3350 [Miralax] 8.5 - 17 gm PO DAILY 09/03/20 10/06/20 - Allergies Allergies/Adverse Reactions: Allergies Allergy/AdvReac Type Severity Reaction Status Date / Time No Known Drug Allergies Allergy Verified 10/06/20 22:58 - Social History Does the pt smoke?: No Smoking Status: Never smoker Does the pt drink ETOH?: Yes Does the pt have substance abuse?: No - Immunizations Immunizations are current?: Yes - POLST Patient has POLST: Yes PD ED PE NORMAL - Vitals Vital signs reviewed: Yes - General General: Alert and oriented X 3 - HEENT HEENT: Atraumatic, PERRL, EOMI - Cardiac Cardiac: RRR, Other (port in place) - Respiratory Respiratory: No respiratory distress, Clear bilaterally - Abdomen Abdomen: Non tender, Non distended, Other (discomfort to palpation diffusely) - Female Female : Deferred - Rectal Rectal: Other (ROBBIN sosa. brown stool on exam. nontender. no ext hemorrhoids) - Back Back: No CVA TTP - Derm Derm: Normal color - Extremities Extremities: No deformity, No edema - Neuro Neuro: Alert and oriented X 3 - Psych Psych: Normal mood, Normal affect Results - Vitals Vitals: Vital Signs - 24 hr 10/06/20 10/07/20 10/07/20 22:55 01:00 01:17 Temperature 36.7 C Heart Rate 79 80 Respiratory 16 14 Rate Blood Pressure 124/83 H 128/51 L O2 Saturation 97 98 Oxygen O2 Source Room air - Labs Labs: Laboratory Tests 10/06/20 10/06/20 10/06/20 23:20 23:20 23:35 WBC 1.4 L* RBC 2.91 L Hgb 8.8 L Hct 27.9 L MCV 95.9 MCH 30.2 MCHC 31.5 L RDW 15.9 H Plt Count 66 L MPV 13.1 H Neut # (Auto) 0.7 L Lymph # (Auto) 0.6 L [place] # (Auto) 0.2 Eos # (Auto) 0.0 Baso # (Auto) 0.0 Absolute Nucleated RBC 0.00 Nucleated RBC % 0.0 Manual Slide Review Indicated Platelet Estimate DECREASED (<130,000) Platelet Morphology NORMAL APPEARANCE RBC Morph Micro Appear NORMAL APPEARANCE Sodium 136 Potassium 4.1 Chloride 100 L Carbon Dioxide 29 Anion Gap 7.0 BUN 17 Creatinine 0.5 Estimated GFR (MDRD) 117 Glucose 137 H Lactic Acid 1.5 Calcium 9.4 Total Bilirubin 1.3 H AST 36 ALT 26 Alkaline Phosphatase 89 Total Protein 6.3 L Albumin 4.2 Globulin 2.1 Albumin/Globulin Ratio 2.0 Lipase 21 L PD MEDICAL DECISION MAKING - ED course Complexity details: reviewed results, d/w patient ED course: 85-year-old woman with myelodysplastic syndrome suffering from constipation x1 week presents with abdominal pain today. Will obtain CT to evaluate for abdominal pathology, reevaluate. 2:30am - d/w patient re: nonspecific cecal distension. no sign of sbo. rectal exam brown stool. patient educated extensively about red flags for return. she will f/u tomorrow for her MDS treatment and will call her doctor to discuss symptoms at that time. Departure - Departure Disposition: 01 Home, Self Care Clinical Impression: Constipation, Abdominal pain, Myelodysplastic syndrome, Pancytopenia Condition: Stable Instructions: ED Constipation Comments: You were seen in the emergency department for abdominal pain. Your lab work was stable. Your CAT scan showed no signs of obstruction. You are likely having this pain and bloating from constipation. Return to the ED for any new or worsening symptoms. Follow-up with your oncologist tomorrow.
[2020-10-06 23:26] LABS: EOSINOPHILS % (AUTO) 0.7 %; HGB - HEMOGLOBIN 8.8 g/dL (12.0-16.0); LYMPHOCYTES # (AUTO) 0.6 10^3/uL (1.5-3.5); LYMPHOCYTES % (AUTO) 39.7 %; MEAN CORPUSCULAR HEMOGLOBIN 30.2 pg (27.0-31.0); MEAN CORPUSCULAR HGB CONC 31.5 g/dL (32.0-36.0); MEAN CORPUSCULAR VOLUME 95.9 fL (81.0-99.0); MEAN PLATELET VOLUME 13.1 fL (7.9-10.8); MONOCYTES # (AUTO) 0.2 10^3/uL (0.0-1.0); MONOCYTES % (AUTO) 12.1 %; NEUTROPHILS # (AUTO) 0.7 10^3/uL (1.5-6.6); NEUTROPHILS % (AUTO) 46.8 %; PLT - PLATELET COUNT 66 10^3/uL (130-450); RED BLOOD COUNT 2.91 10^6/uL (4.20-5.40); RED CELL DISTRIBUTION WIDTH 15.9 % (12.0-15.0)
[2020-10-06 23:31] LABS: WHITE BLOOD COUNT 1.4 x10^3/uL (4.8-10.8)
[2020-10-06] MEDS ORDERED: IOVERSOL 320 100 ML VIAL IVP ONE (23:34)
[2020-10-06] MEDS ORDERED: IOVERSOL 320 50 ML VIAL ONE (23:34)
[2020-10-06 23:37] LABS: ALBUMIN 4.2 g/dL (3.2-5.5); BILIRUBIN,TOTAL 1.3 mg/dL (0.2-1.0); CALCIUM 9.4 mg/dL (8.5-10.3); CREATININE 0.5 mg/dL (0.4-1.0); TOTAL PROTEIN 6.3 g/dL (6.7-8.2)
[2020-10-06 23:55] LABS: PLATELET ESTIMATE, MANUAL DECREASED (<130,000) (NORMAL); PLATELET MORPHOLOGY NORMAL APPEARANCE (NORMAL); RBC MORPHOLOGY (MULTIPLE) NORMAL APPEARANCE (NORMAL)
[2020-10-07] MEDS ORDERED: IOVERSOL 320 100 ML VIAL IVP ONE (01:10)
[2020-10-07] MEDS ORDERED: IOVERSOL 320 50 ML VIAL PO ONE (01:22)
[2020-10-07 03:16] VITALS: BP 124/52
--- NOTE | 2020-10-07 08:59 | CT Report ---
PROCEDURE: Abdomen/Pelvis W INDICATIONS: WITH ORAL CONTRAST - R/O OBSTRUCTION CONTRAST: IV CONTRAST: Optiray 320 ml: 100 PO CONTRAST: Optiray 320 ml50 TECHNIQUE: After the administration of nonionic contrast, 5 mm thick sections acquired from the diaphragms to th e symphysis. 5 mm thick coronal and sagittal reformats were acquired. For radiation dose reduction, the following was used: automated exposure control, adjustment of mA and/or kV according to patient size. COMPARISON: 10/07/2018 ultrasound abdomen, prior 2014 CT scanning of abdomen/pelvis. FINDINGS: Image quality: Excellent. ABDOMEN: Lung bases: Lung bases are clear. Heart size is normal. Solid organs: Liver and spleen are normal in size and enhancement but there is mild intrahepatic lana iary distention and the common duct and the gallbladder caliber appear prominent. Gallbladder appear s free of calcified calculus, but radiolucent gallstones are not accurately detected by CT scanning. Pancreas enhances normally. No adrenal nodules. Kidneys demonstrate normal size and enhancement, b ut show prominence of the collecting systems bilaterally, without ureteral dilatation.. Peritoneum and bowel: Bowel loops demonstrate normal wall thickness and caliber. No free fluid or a ir. Nodes and vessels: No retroperitoneal or mesenteric adenopathy by size criteria. Aorta and inferior vena cava are normal in size. Miscellaneous: No ventral hernias. PELVIS: Genitourinary: Bladder wall thickness is normal. Miscellaneous: No inguinal hernias or adenopathy. Bones: No suspicious bony lesions. No vertebral body compression fractures. IMPRESSION: Intrahepatic biliary distention, mild, with common hepatic duct prominence also. Gallbla dder appears prominent, and overall this raises question for some form of common bile duct abnormalit y. Please correlate with quantitative liver function tests and follow-up by MR cholangiogram may be w arranted. At the right lower quadrant the cecum is near the upper limits of normal but does not appear truly di stended given the wide range of normal variation of the cecal cross-sectional diameter. Prominence of the collecting system of each kidney, likely a normal variation given the absence of a calculus and absence of dilatation of the collecting system and symmetry. Reviewed by: Jacob Teixeira MD on 10/07/2020 8:57 AM PST Approved by: Jacob Teixeira MD on 10/07/2020 8:57 AM PST Station ID: [id number]
== END 2020-10-07 03:16 | disposition home or self-care (01) ==
LOC: EDUNIT# → ED 22:42
DX: K59.00 Constipation, unspecified (principal); T45.1X5A Adverse effect of antineoplastic and immunosuppressive drugs, initial encounter; D61.810 Antineoplastic chemotherapy induced pancytopenia; D46.9 Myelodysplastic syndrome, unspecified
CPT/HCPCS: 36415; 74177; 80053; 83605; 83690; 85025; 96360; 96361; 99284; J7120; Q9967

== ENCOUNTER 2020-10-10 | Outpatient (CLI) | payer MEDICARE, BC ==
--- NOTE | 2020-10-10 14:40 | CONSULTATION NOTE ---
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 She does have ongoing severe anemia, and is transfusion dependent, she is currently receiving 2 units of packed red blood cells, her last transfusion was 7 days ago, previous to that it was 9 days. She is feeling quite exhausted, has received her Vidaza, is receiving this over [place]. This has had another layer of somewhat chaotic scheduling, working on trying to get this better organized. She has had ongoing issues regarding constipation, this accumulated over the weekend, with a visit to the ED, patient presented with severe abdominal pain. They were unable to find any obstruction, of note on exam she had intrahepatic biliary distention, mild, with common hepatic duct prominence also. At her right lower quadrant the cecum is near the upper limits of normal but did not appear distended. She has since "cleaned out", she had been doubling her MiraLAX, and ate a significant amount of [place] prunes. She reports last stools were very liquidy and somewhat orange in color. She denies any abdominal pain or cramping with this. Today she presents is quite fatigued, she is got periorbital edema, her color is somewhat sallow. She does appear quite tired, she reports she did sleep poorly last night. She is feeling weaker. She does get a boost from the transfusions but so far has been short-lived. Her hemoglobin on 10/14 ER was 8.1, 10/06 when it oncology appointment 8.1, and 10/09 7.1. She is concerned about how quickly her counts dropped. Social History - Living Situation Living arrangement: At home Living Situation: Alone Support System: Patient does live alone, but it does depend on her son for transportation and psychosocial support. He has moved to the [place], as well she has support from her community of friends. Medications/Allergies - Medications Home Medications: Ambulatory Orders Medication Instructions Recorded Confirmed Lidocaine/Prilocain 2.5% Cream 1 gm TOP PRN PRN #1 tube 08/29/19 10/10/20 [Emla 2.5% Cream] Cholecalciferol (Vitamin D3) 1 tab PO DAILY 09/03/20 10/10/20 [Vitamin D3] Lactobacillus Acidophilus 1 tab PO DAILY 09/03/20 10/10/20 [Probiotic Acidophilus] Senna [Senokot] 8.6 mg PO QPM PRN MDD 2-4 tabs 09/03/20 10/10/20 polyethylene glycoL 3350 [Miralax] 17 - 32 gm PO DAILY 09/03/20 10/10/20 - Allergies Allergies/Adverse Reactions: Allergies Allergy/AdvReac Type Severity Reaction Status Date / Time No Known Drug Allergies Allergy Verified 10/06/20 22:58 Review of Systems - Constitutional Constitutional: reports: Fatigue (worsening), Weight stable (165). denies: Fever, Chills - Eyes Eyes: reports: Vision loss - Ears, Nose & Throat Ears, Nose & Throat: reports: Dry mouth - Cardiovascular Cardiovascular: reports: Lightheadedness, Exertional dyspnea, Decr. exercise tolerance. denies: Chest pain, Edema - Respiratory Respiratory: reports: SOB with exertion. denies: Cough, SOB at rest - Gastrointestinal Gastrointestinal: reports: Constipation (has double miralax with good results last 24 hours), Nausea, Bloating, Early satiety - Genitourinary Genitourinary: reports: Urgency. denies: Incontinence - Musculoskeletal Musculoskeletal: reports: Stiffness, Muscle weakness - Integumentary Integumentary: reports: Dryness - Neurological Neurological: reports: General weakness, Memory problems (notes mild at times) - Psychiatric Psychiatric: reports: Anxiety (related to change in treatment; trying to navigate current landscape with getting Vidaza in [place]) - Hematologic/Lymphatic Hematologic/Lymph: Anemia (receiving 2 units PRBCs for 7.5 hgb) - All Other Systems All Other Systems: reports: Reviewed and negative Physical Exam - Vital Signs Temperature: 36.4 C Pulse Rate: 66 Respiratory Rate: 16 Blood Pressure: 116/57 - Physical Exam General Appearance: positive: No acute distress, Alert, Lethargic, Other (color sallow) Eyes Bilateral: positive: Normal inspection, No scleral icterus ENT: positive: No signs of dehydration Neck: positive: Trachea midline Cardiovascular: positive: Regular rate & rhythm Respiratory: positive: No respiratory distress, Breath sounds nml Abdomen: positive: Non-tender, Soft Skin: positive: Pallor, Dryness Extremities: positive: No pedal edema Neurologic/Psychiatric: positive: Oriented x3, Weakness, Flat affect Palliative Care - POLST Patient has POLST: Yes POLST Status: DNR, Selective Treatment Pain: No pain Tiredness/Fatigue: Mild (1-3) Drowsiness/Sedation: None Nausea: Mild (1-3) Anorexia: Moderate (4-6) Dyspnea: Mild (1-3) Depression: Mild (1-3) Anxiety: Mild (1-3) Feelings of wellbeing/Perceived Quality of Life: Fair, Acceptable, Worsening Sleep: Sleeps well Performance Status: Patient is experiencing fluctuation in activity tolerance, mostly related to her anemia. She is aware she is a fall risk, she does try and pace herself. Her son does check on her frequently, and offers according to what acceptance of help she will allow - Palliative Care Discussion: Patient has been quite anxious and trying to manage having care both at [facility] and here, did follow-up with [facility] staff/coordinate measuring machine operator will have her scheduled to see Dr. Reed DUNNE on Wednesday. We did discuss that the oncologist would like to see her get her support and blood transfusions, visits here and treatment over there. Visit set up for Wednesday, did have coordinate measuring machine operator cancel Wednesday visit this was a great relief to the patient. She does understand the seriousness of her illness, is hoping for some response, but also is making plans if continues to deteriorate Results - Lab Results Lab results reviewed: Yes Impression and Recommendations - Palliative Care Impression: This is a ute 85-year-old woman with myelodysplastic syndrome, transfusion dependent anemia, known leukocytopenia and thrombocytopenia. She is currently receiving a transfusion, she received her last transfusion 7 days ago, and continues with her completion of her first round of Vidaza. She does understand the seriousness of her illness, is hoping for the best, but also making plans for end-of-life. Patient also has had fluctuating abdominal pain and constipation, currently reports managed. Palliative care continue provide support for symptom management and anticipatory guidance Recommendations/Counseling Done: 1. Constipation. Patient did end up in the ED over the weekend, unclear if side effect of Vidaza or her worsening constipation. She reports currently she is "cleaned out", with liquid stool the last couple days. She will decrease her MiraLAX to daily, but will increase to twice daily if no bowel movement after 48 hours. She does know to add the senna if needed and continue to monitor. She did have a CT scan of the abdomen, with some concerning findings of possible biliary distention, will continue to monitor. 2. Fatigue. This is multifactorial, patient with fluctuating anemia, as well as new treatment program including traveling. She does have a friend who is arranging for rides, this is a relief for her. She is having more trouble tracking, and is feeling more easily overwhelmed. She does depend on her son for increasing support, and does feel she has adequate support network lily dixon. 3. Advanced care planning. Patient does have a POLST in place with DN AR/DNI as selective treatments. She is hoping for the best with a good outcome from her new treatment, but is aware of the seriousness of her illness. Patient continues to share concerns, does like to "be in control" and finding this very difficult place to be. Time Spent: 30 minutes with greater than 50% of this done in counseling regarding symptom management, safety issues, and anticipatory guidance
== END 2020-10-10 09:38 | disposition home or self-care (01) ==
CPT/HCPCS: 99214

== ENCOUNTER 2020-11-11 15:00 | Outpatient (CLI) | payer MEDICARE, BC ==
--- NOTE | 2020-11-11 19:45 | CONSULTATION NOTE ---
Palliative Care Follow Up - Referral Referring Provider: Isela Bedoya PA-C Time of Visit: [id number] Referral setting: Home Referral Reason: Constipation/Fatigue/MDS - Information Sources Records reviewed: Previous records reviewed History/Review of Systems obtained from: Patient Exam limitations: No limitations - History of Present Illness Update Brief HPI Update: This is a ute 85-year-old woman who has MDS, with original diagnosis in 2014. She does have ongoing severe anemia, is transfusion dependent, she is quite pleased though as her last transfusion lasted 17 days. She has been receiving Vidaza, is quite pleased now she can transition her care back to [facility]. She has been getting ongoing care over an average because of availability. Patient has had fluctuating constipation, trying to titrate her medications between MiraLAX, prunes, and senna. She denies any abdominal pain or cramping with this, though does feel quite sluggish in her bowels. She does report there dark in color but not tarry. She received a transfusion on 11/07, so she is feeling somewhat better. She gets quite sedentary, tired, and fatigued when her counts get quite low. She denies any pain. Her color is quite sallow, her lungs are clear, abdomen soft with no discomfort. She does not present with any other symptoms other than trace edema. She continues to be quite pragmatic, and in the moment. She is had less intake her weight is in the 160s, but does not feel like she is anorexic. Social History - Living Situation Living arrangement: At home Living Situation: Alone Support System: Has had a colorful life, she has been involved in counseling, psychology, and groups. She continues to be connected, and able to define community despite isolation. Patient does live alone, but her son is moved to the [place]. She does have a friend who is organizing transportation for her, she is no longer driving. I find her in good spirits today. Medications/Allergies - Medications Home Medications: Ambulatory Orders Medication Instructions Recorded Confirmed Lidocaine/Prilocain 2.5% Cream 1 gm TOP PRN PRN #1 tube 08/29/19 11/12/20 [Emla 2.5% Cream] Cholecalciferol (Vitamin D3) 1 tab PO DAILY 09/03/20 11/12/20 [Vitamin D3] Lactobacillus Acidophilus 1 tab PO DAILY 09/03/20 11/12/20 [Probiotic Acidophilus] Senna [Senokot] 8.6 mg PO QPM PRN MDD 2-4 tabs 09/03/20 11/12/20 polyethylene glycoL 3350 [Miralax] 17 - 32 gm PO DAILY PRN 09/03/20 11/12/20 - Allergies Allergies/Adverse Reactions: Allergies Allergy/AdvReac Type Severity Reaction Status Date / Time No Known Drug Allergies Allergy Verified 10/06/20 22:58 Review of Systems - Constitutional Constitutional: reports: Fatigue (persistent), Weight loss (160's). denies: Fever, Chills - Eyes Eyes: reports: Vision loss - Ears, Nose & Throat Ears, Nose & Throat: reports: Dry mouth - Cardiovascular Cardiovascular: reports: Edema (trace), Lightheadedness (with low counts), Exertional dyspnea, Decr. exercise tolerance. denies: Chest pain - Respiratory Respiratory: reports: SOB with exertion. denies: Cough, SOB at rest - Gastrointestinal Gastrointestinal: reports: Constipation (intermittent), Nausea (with treatment), Bloating, Early satiety - Genitourinary Genitourinary: reports: Urgency. denies: Incontinence - Musculoskeletal Musculoskeletal: reports: Stiffness, Muscle weakness - Integumentary Integumentary: reports: Dryness, Other (tenderness from injection sites) - Neurological Neurological: reports: General weakness, Memory problems (notes mild at times) - Psychiatric Psychiatric: reports: Anxiety (related to change in treatment; trying to navigate current landscape with getting Vidaza in [place]) - Hematologic/Lymphatic Hematologic/Lymph: Anemia (last transfusion 11/07) - All Other Systems All Other Systems: reports: Reviewed and negative Physical Exam - Vital Signs Temperature: 96.5 C Pulse Rate: 78 Respiratory Rate: 16 O2 Saturation: 96 (ra @ rest) Blood Pressure: 98/58 - Physical Exam General Appearance: positive: No acute distress, Alert, Other (color sallow) Eyes Bilateral: positive: Normal inspection, No scleral icterus ENT: positive: No signs of dehydration Neck: positive: Trachea midline Cardiovascular: positive: Regular rate & rhythm Respiratory: positive: No respiratory distress, Breath sounds nml Abdomen: positive: Non-tender, Soft Skin: positive: Pallor, Dryness, Other (fading dull pink injections sites) Extremities: positive: Pedal edema (trace pedal edema where soaks hit) Neurologic/Psychiatric: positive: Oriented x3, Mood/affect nml, Weakness Palliative Care - POLST Patient has POLST: Yes POLST Status: DNR, Selective Treatment Pain: No pain Tiredness/Fatigue: Moderate (4-6) Drowsiness/Sedation: Mild (1-3) Nausea: Moderate (4-6) (with treatment) Anorexia: Mild (1-3) Dyspnea: Mild (1-3) Depression: None Anxiety: Mild (1-3) Feelings of wellbeing/Perceived Quality of Life: Good, Acceptable, Improved Sleep: Sleeps well Constipation: Yes, Intermittent constipation Performance Status: Patient's functional status mirrors her counts, she is feeling quite well and getting many tasks done. She is quite sedentary overall. She does try to ambulate around her house. She is able to manage her own ADLs. She had found the trips to town quite exhausting overall. - Palliative Care Discussion: Patient continues to be quite reflective on where she is, in the "waiting time", she understands she needs at least three treatments to see if going to be effective. She is continue to complete her end-of-life planning tasks, answered questions regarding her continued curiosity around DWD. She denies any anxiety, she does understand the seriousness of her illness, is hoping for a good response. She does feel like she has good support, denies depression or anxiety. Impression and Recommendations - Palliative Care Impression: This is a ute 85-year-old woman with myelodysplastic drome, transfusion dependent anemia, known leukocytopenia and thrombocytopenia. She has received her last transfusion on 11/07, previous 1 had been on 10/21. She does understand the seriousness of her illness, continues to hope for the best. Patient continues with fluctuating abdominal pain and constipation, reports continuing to "tweak" "her regimen. Palliative care continue provide support for symptom management and anticipatory guidance Recommendations/Counseling Done: 1. Constipation. Patient continues to be challenged with titrating her bowel program with side effects of medication, and baseline known constipation. Continue to monitor, counseling provided regarding titration of medications. Recommended continue to move forward and get Hemoccult slides to rule out issues related to darkened stool. 2. Fatigue. This is multifactorial, is consistent with fluctuating anemia as well as new treatment program. Patient is pacing her activities, trying to stay independent for as long as possible, she does have her son for support if n eeded, as well as adequate support of friends currently providing transportation and check-in's. 3. Advanced care planning. Patient does have POLST in place with DN AR/DNI as selective treatments. She does have great granddaughter due in January, she is very much looking forward to this as a goal. She continues to hope for the best with a good outcome from her treatment, but is aware of the seriousness of her illness. Patient continues to share concerns, and reflective of her journey. Time Spent: 45 minutes with greater than 50% of this done in counseling regarding symptom management, coordination of care, and anticipatory guidance
== END 2020-11-11 15:01 | disposition home or self-care (01) ==
LOC: PC 15:00
PROVIDERS: ATTEND Nurse Practitioner Adult Health
DX: Z51.5 Encounter for palliative care (principal); K59.00 Constipation, unspecified; R53.83 Other fatigue; D46.4 Refractory anemia, unspecified; D69.6 Thrombocytopenia, unspecified; Z79.899 Other long term (current) drug therapy; Z66 Do not resuscitate
CPT/HCPCS: 99349

== ENCOUNTER 2020-12-10 09:56 | Outpatient (CLI) | payer MEDICARE, BC ==
--- NOTE | 2020-12-10 18:11 | CONSULTATION NOTE ---
Palliative Care Follow Up - Referral Referring Provider: Isela Acharya PA-C Time of Visit: [id number] [place] [facility] [place] Reason: Anxiety/Fatigue/MDS/Goals of Care - Information Sources Records reviewed: RN notes reviewed, Previous records reviewed History/Review of Systems obtained from: Patient Exam limitations: No limitations - History of Present Illness Update Brief HPI Update: This is a ute 85-year-old woman who has myelodysplastic syndrome with severe anemia, she is pending Vidaza cycle #4, is thought to be hitting her umberto, her hemoglobin dropped down to 6.8, is currently receiving 1 of 2 packed red blood cells today, with a follow-up unit tomorrow. She is having fatigue, and feeling quite weak. Patient's symptom burden is increasing, patient does have low-grade nausea, anorexia, mild shortness of breath, moderate depression, as well as experiencing grief and loss as her daughter on Wednesday. She is going to go visit this weekend, if she is feeling well enough, to be part of the family celebrations. This was not unexpected but still somewhat overwhelming. Patient currently is managing her constipation, she is still not obtained a Hemoccult, as requested, she promises she will do this next week. She does understand the seriousness of her illness, and continues to make plans and move forward as far as end-of-life planning. Social History - Living Situation Living arrangement: At home Living Situation: Alone Support System: Patient does live at home alone, her son lives a few minutes away, he has offered for her to move and when appropriate, as well as she has a friend that is willing to come help her as well. She does have family and community, but no private caregiving or personal caregivers. She wants to remain as independent for as long as possible, and so far has managed to address her ADLs. Though she did come in on wheelchair with her hemoglobin at 6.8 today. Medications/Allergies - Medications Home Medications: Ambulatory Orders Medication Instructions Recorded Confirmed Lidocaine/Prilocain 2.5% Cream 1 gm TOP PRN PRN #1 tube 08/29/19 12/10/20 [Emla 2.5% Cream] Cholecalciferol (Vitamin D3) 1 tab PO DAILY 09/03/20 12/10/20 [Vitamin D3] Lactobacillus Acidophilus 1 tab PO DAILY 09/03/20 12/10/20 [Probiotic Acidophilus] Senna [Senokot] 8.6 mg PO QPM PRN MDD 2-4 tabs 09/03/20 12/10/20 polyethylene glycoL 3350 [Miralax] 17 - 32 gm PO DAILY PRN 09/03/20 12/10/20 Ondansetron HCl [Zofran] 4 mg PO Q4H PRN 11/27/20 12/10/20 - Allergies Allergies/Adverse Reactions: Allergies Allergy/AdvReac Type Severity Reaction Status Date / Time No Known Drug Allergies Allergy Verified 11/19/20 10:04 Review of Systems - Constitutional Constitutional: reports: Fatigue (fluctuates along with counts), Weakness, Poor appetite, Weight stable. denies: Fever, Chills - Eyes Eyes: reports: Vision loss - Ears, Nose & Throat Ears, Nose & Throat: reports: Dry mouth - Cardiovascular Cardiovascular: reports: Lightheadedness, Exertional dyspnea, Decr. exercise tolerance - Respiratory Respiratory: reports: SOB with exertion. denies: Cough, SOB at rest - Gastrointestinal Gastrointestinal: reports: Constipation (intermittent), Nausea (with treatment), Bloating, Early satiety - Genitourinary Genitourinary: reports: Urgency. denies: Incontinence - Musculoskeletal Musculoskeletal: reports: Stiffness, Muscle weakness - Integumentary Integumentary: reports: Dryness, Other (injection sites healing) - Neurological Neurological: reports: General weakness, Memory problems (notes mild at times) - Psychiatric Psychiatric: reports: Depression (with recent loss of daughter), Anxiety - Hematologic/Lymphatic Hematologic/Lymph: reports: Anemia (Receiving 2 units today; one unit tomorrow) - All Other Systems All Other Systems: reports: Reviewed and negative Physical Exam - Vital Signs Temperature: 36.5 C Pulse Rate: 75 Respiratory Rate: 18 O2 Saturation: 100 (reports 90% early in day) Blood Pressure: 196/47 - Physical Exam General Appearance: positive: No acute distress, Alert, Lethargic Eyes Bilateral: positive: Other (dark circles) ENT: negative: Oral lesions Neck: positive: Trachea midline Cardiovascular: positive: Regular rate & rhythm Respiratory: positive: No respiratory distress, Breath sounds nml Abdomen: positive: Soft Skin: positive: Pallor, Dryness, Other (mild peeling across stomach; using coconut oil) Extremities: positive: No pedal edema Neurologic/Psychiatric: positive: Oriented x3, Weakness, Flat affect Palliative Care - POLST Patient has POLST: Yes POLST Status: DNR, Selective Treatment Pain: Location (abdominal), Severity (1/10) Tiredness/Fatigue: Severe (7-10) Drowsiness/Sedation: Moderate (4-6) Nausea: Severe (7-10) (with treatment; using ondansetron alternating with compazine) Anorexia: Severe (7-10) Dyspnea: Moderate (4-6) Depression: Moderate (4-6) Anxiety: Moderate (4-6) Feelings of wellbeing/Perceived Quality of Life: Good, Acceptable, No change Sleep: Sleeps well Constipation: Yes, Managed Performance Status: Patient's functional status mirrors her anemia. She is feeling quite fatigued, does pace herself, does take frequent rests with ambulation for more than 1015 feet, is able to manage her ADLs and some household tasks at home. This is becoming more difficult. - Palliative Care Discussion: Patient's loss of her daughter this weekend, reflection on daughter's journey, she had been chronically ill, though and asked affected not unexpected in the context she has been sick for over 10 years. She is looking forward to seeing her family and grandchildren. Patient continues to finish up end-of-life tasks, revisited conversation around DWD per her request, recommended getting in touch with volunteer so she had all her "ducks in a row". She will reach out to end-of-life Su to complete the process. Counseling provided regarding the process again, patient is quite interested in having this available as an option. We also discussed end of life caregiving, whether to move to her sons, or have a friend stay with her. Counseling provided to process some anticipatory grief regarding loss of independence in that transition time. She remains quite positive, but does recognize the seriousness of her illness and limitations as far as further treatment options. It does make it complicated when transfusion dependent, as weighing benefits and burdens of moving forward and deciding those transition times to hospice. Results - Lab Results Lab results reviewed: Yes Impression and Recommendations - Palliative Care Impression: This is a ute 85-year-old woman with myelodysplastic syndrome, transfusion dependent anemia, known leukocytopenia and thrombocytopenia. She is currently receiving 2 units of P PRBCs today, with follow-up tomorrow. Patient has good insight into the seriousness of her illness, continues to hope for the best. Palliative care continue to provide support for symptom management and anticipatory guidance. Recommendations/Counseling Done: 1. Constipation. Patient continues to titrate her bowel program, in the context of side effects of medication and baseline known constipation. Patient is still not followed through on Hemoccult slides to rule out other issues as she does have fluctuating dark in stool. Encouraged for follow-up, she will notify office so can send a new lab slip as it has been quite a while. 2. Fatigue. This is multifactorial, is consistent with fluctuating with her anemia. Patient is receiving transfusion, she does feel better for short periods of time though is finding less "pick me up". She is pacing her activities, continues to find a balance of asking for help and being independent. 3. Advanced care planning. Patient does have a POLST in place with DN AR and DNI as selective treatments as a goal. She continues to hope for the best with a good outcome from her treatment, but is aware of the seriousness of her illness. Continue to process and to move forward on end-of-life planning, as well as anticipatory guidance. 4. Grief reaction. Patient with loss of her daughter this last weekend, I did spent time processing this, and providing psychosocial support. 45 minutes with greater than 50% of this done in counseling regarding continued end-of-life planning, symptom management, anticipatory guidance
== END 2020-12-10 09:57 | disposition home or self-care (01) ==
LOC: PC 09:56
PROVIDERS: ATTEND Nurse Practitioner Adult Health
DX: Z51.5 Encounter for palliative care (principal); F41.9 Anxiety disorder, unspecified; R53.83 Other fatigue; D46.9 Myelodysplastic syndrome, unspecified; D69.59 Other secondary thrombocytopenia; K59.00 Constipation, unspecified; F43.20 Adjustment disorder, unspecified; R11.0 Nausea; R63.0 Anorexia; R06.02 Shortness of breath; F32.9 Major depressive disorder, single episode, unspecified; H54.7 Unspecified visual loss; R39.15 Urgency of urination; R53.1 Weakness; Z66 Do not resuscitate
CPT/HCPCS: 99215

== ENCOUNTER 2021-01-27 14:34 | Outpatient (CLI) | payer MEDICARE, BC ==
--- NOTE | 2021-01-27 15:48 | CONSULTATION NOTE ---
Palliative Care Follow Up - Referral Referring Provider: Isela Acharya PA-C Time of Visit: [phone]: prep 15= 75 minutes Referral setting: [facility] Referral Reason: MDS/FTT/Goals of Care - Information Sources Records reviewed: RN notes reviewed History/Review of Systems obtained from: Patient Exam limitations: No limitations - History of Present Illness Update Brief HPI Update: This is a 85-year-old woman with myelodysplastic syndrome with severe anemia, transfusion dependent. Unfortunately she had a biopsy on 01/15/2021 that shows persistent mild dysplasia, is not responding to her Vidaza. She also is experiencing worsening pancytopenia, including today presenting with platelets of 4000, and anemia at 6.8 hemoglobin. Her white count has improved some at 1.1. She continues to feel quite fatigued, reports poor intake, early satiety, and taste changes. She has continued to lose weight, her functional status is declining, she denies any pain, shortness of breath, but does perceive herself is losing ground. Her right forehead abscess has continued improved, she only is a 2-day supply left of her antibiotics. She does still continue to have mouth lesions, with some intermittent bleeding. At this point in time her Vidaza is on hold because of the severe side effects and toxicities, and increased need for transfusions. Patient is quite concerned about her quality of life, and perceives that she is entering the last phase of this. Wondering what this might look like, and how best to prepare. Past Medical History: Macular degeneration, chronic constipation, Social History - Living Situation Living arrangement: At home Living Situation: Alone Support System: Patient lives alone, though she has had frequent visitors as her illness is running its course. Her son is coming from [place] on 02/06-02/09 [place]. He and his have been less available to provide support, but are coming to see her for a short period of time. Her son Kody who is her DPOA, continues to provide support. One of her best friends Dee, who is a DPOA as well, is here to provided support for a few days. She has been wrapping things up around her end-of-life planning, she has some friends are working on her end-of-life celebration. She has her plans taking care of. Patient has many community connections and friends given her career and progression over the last several years, her writing group put together a caring bridge site to be able to help decrease the phone calls and keep everyone informed. Medications/Allergies - Medications Home Medications: Ambulatory Orders Medication Instructions Recorded Confirmed Lidocaine/Prilocain 2.5% Cream 1 gm TOP PRN PRN #1 tube 08/29/19 01/21/21 [Emla 2.5% Cream] Cholecalciferol (Vitamin D3) 1 tab PO DAILY 09/03/20 01/21/21 [Vitamin D3] Lactobacillus Acidophilus 1 tab PO DAILY 09/03/20 01/21/21 [Probiotic Acidophilus] Senna [Senokot] 8.6 mg PO QPM PRN MDD 2-4 tabs 09/03/20 01/21/21 polyethylene glycoL 3350 [Miralax] 17 - 32 gm PO DAILY PRN 09/03/20 01/21/21 Ondansetron HCl [Zofran] 4 mg PO Q4H PRN 11/27/20 01/21/21 Sulfamethox/Trimeth 800/160 1 tablet PO BID 14 Days #28 tablet 01/13/21 01/21/21 [Bactrim Ds] - Allergies Allergies/Adverse Reactions: Allergies Allergy/AdvReac Type Severity Reaction Status Date / Time No Known Drug Allergies Allergy Verified 01/21/21 14:15 Review of Systems - Constitutional Constitutional: reports: Fatigue (worsening), Weakness, Poor appetite, Weight loss (149). denies: Fever, Chills - Eyes Eyes: reports: Vision loss - Ears, Nose & Throat Ears, Nose & Throat: reports: Mouth lesions, Dry mouth - Cardiovascular Cardiovascular: reports: Lightheadedness, Exertional dyspnea, Decr. exercise tolerance - Respiratory Respiratory: reports: SOB with exertion. denies: Cough, SOB at rest - Gastrointestinal Gastrointestinal: reports: Constipation (intermittent; managing well with Miralax in am; psysillium capsules mid day, and senna at night), Bloating, Early satiety - Genitourinary Genitourinary: reports: Urgency. denies: Incontinence - Musculoskeletal Musculoskeletal: reports: Stiffness, Muscle weakness - Integumentary Integumentary: reports: Dryness, Hair changes (thinning) - Neurological Neurological: reports: General weakness, Memory problems (notes mild at times) - Psychiatric Psychiatric: reports: Anxiety - Hematologic/Lymphatic Hematologic/Lymph: reports: Anemia (6.8; receiving one unit today), Bruising (plts 4000, will receive tomorrow) - All Other Systems All Other Systems: reports: Reviewed and negative Physical Exam - Vital Signs Temperature: 97.7 C Pulse Rate: 65 Respiratory Rate: 16 Blood Pressure: 111/53 - Physical Exam General Appearance: positive: No acute distress, Alert Eyes Bilateral: positive: Normal inspection, No scleral icterus ENT: positive: No signs of dehydration, Oral lesions (lesion in left buccal area; no blood blisters noted) Neck: positive: Trachea midline Cardiovascular: positive: Regular rate & rhythm Respiratory: positive: No respiratory distress Abdomen: positive: Non-tender, Soft Skin: positive: Pallor, Dryness, Bruising Neurologic/Psychiatric: positive: Oriented x3, Weakness, Flat affect Palliative Care - POLST Patient has POLST: Yes POLST Status: DNR, Selective Treatment Pain: No pain Tiredness/Fatigue: Moderate (4-6) Drowsiness/Sedation: Moderate (4-6) Nausea: None Anorexia: Severe (7-10) Dyspnea: Moderate (4-6) (with activity) Depression: Mild (1-3) Anxiety: Mild (1-3) Feelings of wellbeing/Perceived Quality of Life: Fair, Acceptable, Worsening Sleep: Sleeps well Constipation: Yes, Managed Performance Status: Patient is still managing to be independent, she does have her bathroom set up for safety. Friends and family are helping with cooking and food prep. She is unable to manage her housekeeping, but does have assistance with this as well. I would put her at a PPS of 70% - Palliative Care Discussion: Conversation focused on patient's concern for her ongoing decline, being ready for end-of-life. She is what she calls "FOMO" fear of missing out, but feels like she has gotten most of her end-of-life affairs in order if she were to tomorrow. She is quite curious about what this might look like, it is quite complicated in the setting of needing transfusion support, at this point in time she is still benefiting. She is certainly at risk for sequela of a fall related to her platelet counts, or further decline functionally. She would like to have available DWD, she has a friend here visiting, who will help her finish reaching out and getting a volunteer. Conversation was reflective of her recent of her daughter, things that are most important to her including make it to her great granddaughters , she does have friends and family coming to visit to [place] around to say their goodbyes. She has been somewhat overwhelmed with all the phone calls, her writing group is putting together caring Bridge site so she can communicate through this means. Results - Lab Results Lab results reviewed: Yes Impression and Recommendations - Palliative Care Impression: This is a ute 85-year-old woman with myelodysplastic syndrome, transfusion dependent anemia, with persistent leukocytopenia and thrombocytopenia. She is to receive 2 units of packed red blood cells and platelets, she does have good insight into the seriousness of her illness. Her treatment with the by days that is currently on hold, as was adding to her pancytopenia. Patient does recognize there are no further options given her current situation. Palliative care providing support for anticipatory guidance, end-of-life planning, and symptom management. Recommendations/Counseling Done: 1. Constipation. Patient has been working on titrating her medications, she does feel like she is in a good space with this, is having regular BMs without any straining. No changes made to bowel program. 2. Fatigue. This is multifactorial, consistent with fluctuating with her anemia. She is receiving transfusions, she does feel better for short periods of time, though finding this is waning. She is pacing her activities, is putting more limits on her time and energy. 3. Advanced care planning. Patient does have POLST in place with DN AR and DNI as selective treatments as a goal. She is starting to express more comfort related goals, we did counseling regarding the role of hospice and transition points. She is aware of the seriousness of her illness, and no further treatment options. She continues to process to move forward on end-of-life planning as well as answered questions regarding anticipatory guidance. 75 minutes with 60 minutes face to face with exam and symptom management, counseling; 15 minutes review of labs, coordination with oncology team, and review of records.
== END 2021-01-27 14:35 | disposition home or self-care (01) ==
LOC: PC 14:34
PROVIDERS: ATTEND Nurse Practitioner Adult Health
DX: Z51.5 Encounter for palliative care (principal); K59.00 Constipation, unspecified; R53.83 Other fatigue; D46.4 Refractory anemia, unspecified; D61.818 Other pancytopenia; D69.6 Thrombocytopenia, unspecified; Z66 Do not resuscitate
CPT/HCPCS: 99215

== ENCOUNTER 2021-02-05 15:06 | Outpatient (CLI) | payer MEDICARE, BC ==
--- NOTE | 2021-02-05 16:17 | CONSULTATION NOTE ---
Palliative Care Follow Up - Referral Referring Provider: Isela Acharya PA-C Time of Visit: [id number] Referral setting: [facility] Referral Reason: MDS/anemia/Goals of Care - Information Sources Records reviewed: Previous records reviewed, Other (labs) History/Review of Systems obtained from: Patient Exam limitations: No limitations - History of Present Illness Update Brief HPI Update: This is a ute 85-year-old woman with myelodysplastic syndrome with severe anemia, transfusion dependent. She reports she was originally diagnosed in 2012, and started receiving Procrit in 2014. She has been Luspatercept, until she no longer was receiving a sustained response. This is was until September, then she was stopped and with the goal to start Vidaza, she received this 09/202212/23/2020. Patient at that time had understood this most likely was her last treatment option, unfortunately despite treatment, she is still on most recent bone marrow showed continued MDS and no response. They did have to stop treatment as her pancytopenia was worsening, needing both platelet and packed red blood cell support, she has needed them almost weekly now. She has been toying over the last month about timing for transition to hospice, she does feel at this point in time she has met her goals, understanding there is no other ed[place] atment options that are going to prolong her life, and is starting to have less response as far as improvement after transfusions. She has done fairly well through all of this, without any acute hospitalizations, she did have an infection on her forehead of a cyst, which was treated with Bactrim DS x2 weeks, is still oozing some but no signs or symptoms of infection. Her most persistent symptoms have been fatigue, and intermittent constipation. Her counts today, her WBC 1.0, 0.1 neutrophils, Hemoglobin is 6.9, hematocrit 21.6, platelets 3000. She is receiving 1 unit of platelets, and 2 units of packed red blood cells, with the plan to transition to hospice on Wednesday. Her son Kody who is her primary support and DPOA up here, is supportive of her decision, her other son Weston and his daughter are coming from [place], to be with her this weekend. She is awaiting the of great granddaughter, and believes she will be able to at least see a picture of her before her passing. 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 Past Medical History: Macular degeneration, chronic constipation Social History - Living Situation Living arrangement: At home Living Situation: Alone Support System: Patient has lived on [facility] for 21 years, she lives in a mobile home in [place]. 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 Her daughter recently after a prolonged chronic illness, she has 2 other sons. Her son Kody came to live on [facility] in July, to provide more support. Her very good friend who is also one of her DPOA's, Dee, who has hx as EMT, Is coming to be a primary caregiver as well, at this point is scheduled 02/13, but she would be available to come earlier if needed. Medications/Allergies - Medications Home Medications: Ambulatory Orders Medication Instructions Recorded Confirmed Lidocaine/Prilocain 2.5% Cream 1 gm TOP PRN PRN #1 tube 08/29/19 02/05/21 [Emla 2.5% Cream] Cholecalciferol (Vitamin D3) 1 tab PO DAILY 09/03/20 02/05/21 [Vitamin D3] Lactobacillus Acidophilus 1 tab PO DAILY 09/03/20 02/05/21 [Probiotic Acidophilus] Senna [Senokot] 8.6 mg PO QPM PRN MDD 2-4 tabs 09/03/20 02/05/21 polyethylene glycoL 3350 [Miralax] 17 - 32 gm PO DAILY PRN 09/03/20 02/05/21 Ondansetron HCl [Zofran] 4 mg PO Q4H PRN 11/27/20 02/05/21 - Allergies Allergies/Adverse Reactions: Allergies Allergy/AdvReac Type Severity Reaction Status Date / Time No Known Drug Allergies Allergy Verified 01/21/21 14:15 Review of Systems - Constitutional Constitutional: reports: Fatigue (persistent and worsening), Weakness, Poor appetite, Weight loss (149). denies: Fever, Chills - Eyes Eyes: reports: Vision loss - Ears, Nose & Throat Ears, Nose & Throat: reports: Dry mouth. denies: Mouth lesions (has had mouth lesions with low plts; okay today) - Cardiovascular Cardiovascular: reports: Lightheadedness, Exertional dyspnea, Decr. exercise tolerance - Respiratory Respiratory: reports: SOB with exertion. denies: Cough, SOB at rest - Gastrointestinal Gastrointestinal: reports: Constipation (intermittent; managing well with Miralax in am; psysillium capsules mid day, and senna at night), Bloating, Early satiety - Genitourinary Genitourinary: reports: Urgency. denies: Incontinence - Musculoskeletal Musculoskeletal: reports: Stiffness, Muscle weakness - Integumentary Integumentary: reports: Dryness, Hair changes (thinning) - Neurological Neurological: reports: General weakness, Memory problems (notes mild at times) - Psychiatric Psychiatric: reports: Anxiety - Hematologic/Lymphatic Hematologic/Lymph: reports: Anemia (6.9; received two units today), Bruising (plts 4000, will receive tomorrow) - All Other Systems All Other Systems: reports: Reviewed and negative Physical Exam - Vital Signs Temperature: 37.1 C Pulse Rate: 69 Respiratory Rate: 18 Blood Pressure: 113/53 - Physical Exam General Appearance: positive: No acute distress, Alert Eyes Bilateral: positive: Normal inspection, No scleral icterus ENT: positive: No signs of dehydration Neck: positive: Trachea midline Cardiovascular: positive: Regular rate & rhythm Respiratory: positive: No respiratory distress Abdomen: positive: Non-tender, Soft Skin: positive: Pallor (sallow color), Dryness, Bruising Neurologic/Psychiatric: positive: Oriented x3, Weakness, Flat affect Palliative Care - POLST Patient has POLST: Yes POLST Status: DNR, Comfort Measures (updated POLST to reflect current transition to hospice/goals) Pain: No pain Tiredness/Fatigue: Severe (7-10) Drowsiness/Sedation: Moderate (4-6) Nausea: None Anorexia: Severe (7-10) Dyspnea: Mild (1-3) Depression: None Anxiety: Moderate (4-6) Feelings of wellbeing/Perceived Quality of Life: Good, Acceptable, Worsening Sleep: Sleeps well Constipation: Yes, Managed Performance Status: Patient's activity tolerance is reflective often of her anemia status. She is able to ambulate short distances, she has a small apartment in a recliner that she rests them. At this point in time she is not interested in the hospital bed, though admits it may be needed in the end. She is able to toilet herself, is having more trouble with food preparation, and less energy with transfusions.I would put her at a PPS of 50% - Palliative Care Discussion: Patient I have had several conversations regarding her upcoming decline, she is feeling like this is time for her last transfusion. She "stops wanting take Resources", she is going to be seeing both her sons tomorrow, she feels like she has most of her letters written and goodbyes done. She is hoping to see her great granddaughter who is due anytime at least a picture of her. She reports her son Kody is very supportive of her and grieving appropriately, she is hoping with the hospice visit, Weston will feel included and understand the situation as well. She does feel like she can ask her friend Dee to come sooner, particularly if she needs personal care, that has been a fear for her, trying to surrender to that level of dependence. We did complete her POLST with the transition from DNR/DNI from selected to comfort focused care. She does understand if she has any level of suffering, including shortness of breath or anxiety there will be medications to be able to manage these. She has friends who have already started planning her "celebration", she has her plans done, and has most of the things done on her to do list. She is very grateful for all the care and support she has had over the years, the [facility] clinic has been her community. Impression and Recommendations - Palliative Care Impression: This is a ute 85-year-old woman with myelodysplastic syndrome, transfusion dependent anemia and persistent leukocytopenia and thrombocytopenia. She is receiving 2 units of packed red blood cells and 1 unit of platelets today, she does understand in the context of her decision making and transition to hospice this will be her last transfusion. She feels like she is at a good place, with her affairs in order, her 2 sons will be with her this weekend as well as other family. Palliative care providing support and anticipatory guidance, for transition to hospice. Recommendations/Counseling Done: 1. MDS. Patient has needed weekly transfusions, most likely her counts will drop off fairly quickly, today she was 6.9 is receiving 2 units of packed red blood cells, and platelets were 3000, receiving 1 unit of platelets. She is ready at this point to transition to hospice, referral made, POLST updated to comfort measures, and anticipatory guidance provided. 2. Constipation. Patient has had chronic constipation, continues to titrate her bowel program appropriately, she has had decreased intake and anorexia, is mostly eating for comfort, but is staying hydrated. 3. Advanced care planning. Patient does have DPOA in place, updated POLST, referral to hospice made, oncology is aware of patient's pending transition to hospice. 60 minutes [id number] time with counseling regarding anticipatory guidance and transition to hospice, up-to-date POLST, and coordination of care with oncology and hospice team
== END 2021-02-05 15:07 | disposition home or self-care (01) ==
LOC: PC 15:06
PROVIDERS: ATTEND Nurse Practitioner Adult Health
DX: Z51.5 Encounter for palliative care (principal); D46.4 Refractory anemia, unspecified; D72.819 Decreased white blood cell count, unspecified; D61.818 Other pancytopenia; K59.00 Constipation, unspecified; Z66 Do not resuscitate
CPT/HCPCS: 99215